=== PATIENT | male | born 1965 | race Caucasian/White ===

== ENCOUNTER 2019-07-13 08:47 | Emergency (ER) | payer OTHER ==
[~2019-07-13] VITALS: Ht 167.6 cm; Wt 73.0 kg
[~2019-07-13 08:47] MED LIST: ATIVAN1 MG PO; FOL1 PO; THERA-M CAPLET1 EACH PO; THI100 PO
[2019-07-13 09:12] VITALS: Ht 167.6 cm; Wt 73.0 kg
[2019-07-13 13:10] VITALS: BP 137/72
== END 2019-07-13 13:10 | disposition home or self-care (01) ==
LOC: ED 08:47
DX: S20.229A Contusion of unspecified back wall of thorax, initial encounter (principal); F10.239 Alcohol dependence with withdrawal, unspecified; W01.0XXA Fall on same level from slipping, tripping and stumbling without subsequent striking against object, initial encounter; Y93.89 Activity, other specified; Y92.89 Other specified places as the place of occurrence of the external cause; Y99.8 Other external cause status; Y90.9 Presence of alcohol in blood, level not specified
CPT/HCPCS: J2060